=== PATIENT | female | born 1990 | race Caucasian/White ===

== ENCOUNTER 2018-10-07 15:38 | Emergency (ER) | payer OTHER ==
--- NOTE | 2018-10-07 17:59 | ED ---
Lower Extremity - HPI Summary HPI Summary: 28-year-old female presents with foot pain today. States that she ended up rolling her foot and felt a pop. She has been unable to ambulate on the foot. she previous broke this ankle when she was younger. No knee pain. No other injury. Has no medical conditions. - History of Current Complaint Chief Complaint: EDExtremityLower Stated Complaint: RIGHT FOOT INJURY, FALL AT WORK Time Seen by Provider: 10/07/18 16:49 Hx Last Menstrual Period: 09/05/2012 Pain Intensity: 2 - Allergies/Home Medications Allergies/Adverse Reactions: Allergies Allergy/AdvReac Type Severity Reaction Status Date / Time No Known Allergies Allergy Verified 10/01/12 14:35 PMH/Surg Hx/FS Hx/Imm Hx Endocrine/Hematology History: Denies: Hx Diabetes, Hx Thyroid Disease Cardiovascular History: Denies: Hx Hypertension Respiratory History: Denies: Hx Asthma, Hx Chronic Obstructive Pulmonary Disease (COPD) GI History: Denies: Hx Ulcer - Surgical History Surgery Procedure, Year, and Place: Right ankle surgery 2000 Infectious Disease History: No Infectious Disease History: Denies: Hx Hepatitis, Hx Human Immunodeficiency Virus (HIV), Traveled Outside the [place] in Last 30 Days - Family History Known Family History: Positive: Non-Contributory - Social History Alcohol Use: Occasionally Substance Use Type: Reports: None Review of Systems Negative: Fever Negative: Chest Pain Negative: Shortness Of Breath Positive: Myalgia - right foor pain All Other Systems Reviewed And Are Negative: Yes Physical Exam Triage Information Reviewed: Yes Vital Signs On Initial Exam: Initial Vitals Temp Pulse Resp BP Pulse Ox 97.8 F 66 18 128/71 100 10/07/18 15:39 10/07/18 15:39 10/07/18 15:39 10/07/18 15:39 10/07/18 15:39 Vital Signs Reviewed: Yes Appearance: Positive: Well-Appearing Skin: Positive: Warm, Dry Head/Face: Positive: Normal Head/Face Inspection Eyes: Positive: Normal, Conjunctiva Clear ENT: Positive: Pharynx normal Respiratory/Lung Sounds: Positive: Clear to Auscultation, Breath Sounds Present Cardiovascular: Positive: Normal, RRR Musculoskeletal: Positive: Limited @ - right foot, Other - tenderness and edema over 5th metatarsal, good pulses Neurological: Positive: Normal Psychiatric: Positive: Normal Procedures - Splinting right foot Location: right foot Hand-Made Type: orthoglass Splint: posterior walking Pre-Proc Neuro Vasc Exam: normal Post-Proc Neuro Vasc Exam: normal Diagnostics - Vital Signs Vital Signs Temp Pulse Resp BP Pulse Ox 10/07/18 15:39 97.8 F 66 18 128/71 100 - Laboratory Lab Statement: Any lab studies that have been ordered have been reviewed, and results considered in the medical decision making process. - Radiology foot, ankle Radiology Interpretation Completed By: ED Physician Summary of Radiographic Findings: IMPRESSION: FRACTURE AT THE BASE OF THE FIFTH METATARSAL. Lower Extremity Course/Dx - Course Course Of Treatment: 28-year-old female presents with foot pain today. States that she ended up rolling her foot and felt a pop. She has been unable to ambulate on the foot. she previous broke this ankle when she was younger. No knee pain. No other injury. Has no medical conditions. On exam tenderness over fifth metatarsal. Neurovascular intact. X-ray shows fifth metatarsal fracture. Placed in a posterior walking splint. gave crutches. Told to follow -up with orthopedic. Told to ice on it. Patient understands and agrees with plan. - Diagnoses Differential Diagnosis/HQI/PQRI: Positive: Fracture (Closed), Sprain, Strain Provider Diagnoses: Fracture of 5th metatarsal Discharge - Sign-Out/Discharge Documenting (check all that apply): Patient Departure Patient Received Moderate/Deep Sedation with Procedure: No - Discharge Plan Condition: Good Disposition: HOME Patient Education Materials: Foot Fracture in Adults (ED) Referrals: No Primary Care Phys,NOPCP [Primary Care Provider] - Ryan Carlisle MD [Medical Doctor] - Additional Instructions: Use crutches and stay nonweight bearing Keep splint on area and keep dry Call ortho office tomorrow to set up appointment for follow up Use ibuprofen or tyenlol for pain every 6 hours Ice, elevate Return to ED if develop any new or worsening symptoms - Billing Disposition and Condition Condition: GOOD Disposition: Home
[2018-10-07 18:25] VITALS: BP 128/75
== END 2018-10-07 18:24 | disposition home or self-care (01) ==
LOC: ED 15:38
DX: S92.351A Displaced fracture of fifth metatarsal bone, right foot, initial encounter for closed fracture (principal); X58.XXXA Exposure to other specified factors, initial encounter; Y92.9 Unspecified place or not applicable; Y99.0 Civilian activity done for income or pay
CPT/HCPCS: 99282